=== PATIENT | male | born 1975 | race African-American/Black ===

== ENCOUNTER 2018-02-21 12:22 | Emergency (ER) | payer OTHER ==
[~2018-02-21] VITALS: Ht 172.7 cm; Wt 67.8 kg
[~2018-02-21 12:22] MED LIST: DIPH25CA58 PO; LISI10TA2 PO; PRED-220 PO
[2018-02-21 13:06] LABS: BASO % 1 % (0-3); EOS # 0.2 x10^3/uL (0.0-0.7); EOS % 3 % (0-3); HEMATOCRIT 41.2 % (39.0-53.0); HEMOGLOBIN 13.5 g/dL (13.0-17.5); LYMPH # 1.9 x10^3/uL (1.0-4.8); LYMPH % 24 % (24-48); MEAN CORPUSCULAR HEMOGLOBIN 27 pg (25-35); MEAN CORPUSCULAR HGB CONC 33 g/dL (31-37); MEAN CORPUSCULAR VOLUME 83 fL (79-100); MONO # 0.7 x10^3/uL (0.0-1.1); MONO % 9 % (0-9); NEUT % 63 % (31-73); PLATELET COUNT 292 x10^3/uL (140-400); RED BLOOD COUNT 4.98 x10^6/uL (4.30-5.70); RED CELL DISTRIBUTION WIDTH 14.3 % (11.5-14.5); WHITE BLOOD COUNT 7.9 x10^3/uL (4.0-11.0)
--- NOTE | 2018-02-21 13:10 | PHYS DOC ---
Past History Past Medical History: Hypertension Past Surgical History: Other Alcohol Use: Occasionally Drug Use: Marijuana Adult General Chief Complaint Chief Complaint: HYPERTENSION HPI HPI 42-year-old male presents with hypertension. Patient woke up this morning and had a headache which he describes as a burning feeling. He decided to go back to sleep. He woke up couple hours later and continued to have headache and light upper chest pain just around the clavicle. He was concerned might be his blood pressure. He checked his blood pressure with a home machine and was found in the 180s over 120. He decided he comes emergency room. Patient denies any shortness of breath, dizziness, change in vision. His headache has resolved at this time. He has no further chest discomfort. He was prescribed amlodipine 5 mg but has been out for several weeks. He knows he should've gotten a refill but he has put off going back for his follow-up appointment. He believes that the amlodipine was working well when he was taking it. He denies any other symptoms of illness or pain. Review of Systems Review of Systems Constitutional: Denies fever or chills [] Eyes: Denies change in visual acuity, redness, or eye pain [] HENT: Denies nasal congestion or sore throat [] Respiratory: Denies cough or shortness of breath [] Cardiovascular: No additional information not addressed in HPI [] GI: Denies abdominal pain, nausea, vomiting, bloody stools or diarrhea [] : Denies dysuria or hematuria [] Musculoskeletal: Denies back pain or joint pain [] Integument: Denies rash or skin lesions [] Neurologic: Denies headache, focal weakness or sensory changes [] Endocrine: Denies polyuria or polydipsia [] All other systems were reviewed and found to be within normal limits, except as documented in this note. Current Medications Current Medications Current Medications Medications (Trade) Dose Ordered Sig/Jhonatan Start Time Stop Time Status Last Admin Dose Admin Amlodipine Besylate (Norvasc) 5 mg 1X ONCE 02/21/18 13:20 02/21/18 13:21 02/21/18 13:00 5 MG Allergies Allergies Allergies Coded Allergies Type Severity Reaction Last Updated Verified No Known Drug Allergies 05/01/16 No Physical Exam Physical Exam Constitutional: Well developed, well nourished, no acute distress, non-toxic appearance. [] HENT: Normocephalic, atraumatic, bilateral external ears normal, oropharynx moist, no oral exudates, nose normal. [] Eyes: PERRLA, EOMI, conjunctiva normal, no discharge. [] Neck: Normal range of motion, no tenderness, supple, no stridor. [] Cardiovascular:Heart rate regular rhythm, no murmur [] Lungs & Thorax: Bilateral breath sounds clear to auscultation [] Abdomen: Bowel sounds normal, soft, no tenderness, no masses, no pulsatile masses. [] Skin: Warm, dry, no erythema, no rash. [] Back: No tenderness, no CVA tenderness. [] Extremities: No tenderness, no cyanosis, no clubbing, ROM intact, no edema. [] Neurologic: Alert and oriented X 3, normal motor function, normal sensory function, no focal deficits noted. [] Psychologic: Affect normal, judgement normal, mood normal. [] Current Patient Data Vital Signs Vital Signs Date Time Temp Pulse Resp B/P (MAP) Pulse Ox O2 Delivery O2 Flow Rate FiO2 02/21/18 13:00 65 174/110 EKG EKG [] Radiology/Procedures Radiology/Procedures [] Course & Med Decision Making Course & Med Decision Making Pertinent Labs and Imaging studies reviewed. (See chart for details) Patient's labs are unremarkable. I will give him 5 mg of amlodipine. The patient 's blood pressure has improved to 164/100. I will discharge him with a prescription for amlodipine for 30 days. Encouraged him to follow up with his PCP for further management. He is stable for discharge at this time. [] Dragon Disclaimer Dragon Disclaimer This electronic medical record was generated, in whole or in part, using a voice recognition dictation system. Departure Departure: Referrals: JUVE COURTNEY MD (PCP) ELI CALIXTO DO Feb 21, 2018 13:10
[2018-02-21] MEDS ORDERED: amLODIPine BESYLATE 5 MG TABLET PO ONE (13:20)
[2018-02-21 13:21] LABS: ALBUMIN 3.7 g/dL (3.4-5.0); ALBUMIN/GLOBULIN RATIO 1.1 (1.0-1.7); CALCIUM 8.4 mg/dL (8.5-10.1); GFR 99.2; POTASSIUM 3.7 mmol/L (3.5-5.1); TOTAL BILIRUBIN 0.4 mg/dL (0.2-1.0); TOTAL PROTEIN 7.1 g/dL (6.4-8.2)
[2018-02-21 14:13] VITALS: BP 135/89
[2018-02-21] MEDS ORDERED: AMLO5TAB7 PO (14:15)
== END 2018-02-21 14:15 | disposition home or self-care (01) ==
LOC: ER 12:22
DX: I10 Essential (primary) hypertension (principal); R07.89 Other chest pain
CPT/HCPCS: 36415; 80053; 85025; 99283

== ENCOUNTER 2020-08-30 13:44 | Emergency (ER) | payer OTHER ==
[~2020-08-30] VITALS: Ht 172.7 cm; Wt 71.3 kg
[~2020-08-30 13:44] MED LIST changes: +AMLO-186 PO; +LISI10TA16 PO; -LISI10TA2 PO
[2020-08-30 14:53] VITALS: BP 151/107
[2020-08-30] MEDS ORDERED: IV NORMAL SALINE 1,000ML 1,000 ML IV ONE (15:30)
--- NOTE | 2020-08-30 15:31 | PHYS DOC ---
Past History Past Medical History: Asthma, Hypertension Past Surgical History: Other Alcohol Use: Occasionally Drug Use: Marijuana Adult General Chief Complaint Chief Complaint: NAUSEA/VOMITING/DIARRHEA HPI HPI Patient is a 44-year-old male presenting for nausea and vomit. Reports being relatively healthy, does admit to going out with friends 48 hours prior and took x3 tequila shots and blacked out which is unusual for him. He is concerned that he might have been targeted by a libertarian drug. Reports feeling dehydrated, nauseous and has suffered numerous episodes of nonbloody nonbilious emesis ever since. No fever, chest pain, shortness of breath, abdominal pain, dysuria Review of Systems Review of Systems Fourteen body systems of review of systems have been reviewed. See HPI for pertinent positives and negative responses, other thomas all other systems are negative, non-pertinent or non-contributory Allergies Allergies Allergies Coded Allergies Type Severity Reaction Last Updated Verified No Known Drug Allergies 05/01/16 No Physical Exam Physical Exam Constitutional: Well developed, well nourished, no acute distress, non-toxic appearance. HENT: Normocephalic, atraumatic, bilateral external ears normal, oropharynx moist, no oral exudates, nose normal. Eyes: PERRLA, EOMI, conjunctiva normal, no discharge. Neck: Normal range of motion, no tenderness, supple, no stridor. Cardiovascular: Heart rate regular, sinus rhythm, no murmurs rubs or gallops Lungs & Thorax: Bilateral breath sounds clear to auscultation Abdomen: Bowel sounds normal, soft, no tenderness, no masses, no pulsatile masses. Nonsurgical abdomen, no peritoneal signs Skin: Warm, dry, no erythema, no rash. Back: No tenderness, no CVA tenderness. Extremities: No tenderness, no cyanosis, no clubbing, ROM intact, no edema. Neurologic: Alert and oriented X 3, grossly normal motor & sensory function, no focal deficits noted. Psychologic: Affect normal, judgement normal, mood normal. Current Patient Data Vital Signs Vital Signs Date Time Temp Pulse Resp B/P (MAP) Pulse Ox O2 Delivery O2 Flow Rate FiO2 08/30/20 14:53 98.8 88 18 151/107 (122) 100 Lab Results Laboratory Tests Test 08/30/20 15:37 White Blood Count 15.3 x10^3/uL Red Blood Count 5.65 x10^6/uL Hemoglobin 15.5 g/dL Hematocrit 46.5 % Mean Corpuscular Volume 82 fL Mean Corpuscular Hemoglobin 27 pg Mean Corpuscular Hemoglobin Concent 33 g/dL Red Cell Distribution Width 14.1 % Platelet Count 311 x10^3/uL Neutrophils (%) (Auto) 70 % Lymphocytes (%) (Auto) 17 % Monocytes (%) (Auto) 12 % Eosinophils (%) (Auto) 0 % Basophils (%) (Auto) 0 % Neutrophils # (Auto) 10.7 x10^3uL Lymphocytes # (Auto) 2.6 x10^3/uL Monocytes # (Auto) 1.8 x10^3/uL Eosinophils # (Auto) 0.0 x10^3/uL Basophils # (Auto) 0.0 x10^3/uL Segmented Neutrophils % 62 % Lymphocytes % 28 % Monocytes % 10 % Platelet Estimate Adequate Urine Collection Type Unknown Urine Color Yellow Urine Clarity Cloudy Urine pH 6.0 Urine Specific Stuart >=1.030 Urine Protein 100 mg/dl Urine Glucose (UA) Neg mg/dL Urine Ketones (Stick) Neg mg/dL Urine Blood Neg Urine Nitrite Neg Urine Bilirubin Small Urine Urobilinogen Dipstick 0.2 mg/dL Urine Leukocyte Esterase Neg Urine RBC 0 /HPF Urine WBC 0 /HPF Urine Squamous Epithelial Cells Occ /LPF Urine Bacteria 0 /HPF Urine Hyaline Casts Few /HPF Urine Mucus Mod /LPF Sodium Level 138 mmol/L Potassium Level 3.0 mmol/L Chloride Level 98 mmol/L Carbon Dioxide Level 30 mmol/L Anion Gap 10 Blood Urea Nitrogen 21 mg/dL Creatinine 1.3 mg/dL Estimated GFR (Cockcroft-Gault) 72.6 BUN/Creatinine Ratio 16 Glucose Level 100 mg/dL Calcium Level 9.1 mg/dL Magnesium Level 2.5 mg/dL Total Bilirubin 1.5 mg/dL Aspartate Amino Transf (AST/SGOT) 35 U/L Alanine Aminotransferase (ALT/SGPT) 47 U/L Alkaline Phosphatase 103 U/L Total Protein 8.2 g/dL Albumin 4.4 g/dL Albumin/Globulin Ratio 1.2 Current Medications Medications (Trade) Dose Ordered Sig/Jhonatan Route PRN Reason Start Time Stop Time Status Last Admin Dose Admin Sodium Chloride 1,000 ml @ 1,000 mls/hr 1X ONCE IV 08/30/20 15:30 08/30/20 16:29 DC 08/30/20 16:22 Potassium Chloride (Klor-Con) 40 meq 1X ONCE PO 08/30/20 16:45 08/30/20 16:46 DC Potassium Chloride (Klor-Con) 40 meq 1X ONCE PO 08/30/20 17:15 08/30/20 17:16 DC Radiology/Procedures Radiology/Procedures [] Heart Score C/O Chest Pain: No HEART Score for Chest Pain: HEART Score for Chest Pain Response (Comments) Value History Slighlty/Non-Suspicious 0 ECG Normal 0 Age < 45 0 Risk Factors No Risk Factors 0 Total 0 Risk Factors: Risk Factors: DM, Current or recent (<one month) smoker, HTN, HLP, family history of CAD, obesity. Risk Scores: Risk Factors: DM, Current or recent (<one month) smoker, HTN, HLP, family history of CAD, obesity. Course & Med Decision Making Course & Med Decision Making Discussed with the patient all findings and diagnostic testing. I discussed most likely diagnosis of likely self-limiting GI illness such as gastroenteritis versus sequelae of cardiac drug versus other. Patient symptoms completely resolved with ER intervention including IV fluid rehydration and antiemetics. Supplemental potassium given and tolerated well in ER. Patient tolerating p.o. intake and requesting discharge home and of ER visit with request for p.o. Zofran. I feel this is appropriate, he has good access to care and so, I stressed need for close outpatient follow-up to review today's ER visit. Strict return precautions were also discussed at length with good understanding by patient. Patient voiced understanding and agreement with the plan. Patient knows to come back for repeat evaluation if concerning signs or symptoms present prior to outpatient follow-up. Hemodynamically stable, ambulatory and well- appearing at time of disposition. Dragon Disclaimer Dragon Disclaimer This electronic medical record was generated, in whole or in part, using a voice recognition dictation system. Departure Departure: Impression: Primary Impression: Nausea & vomiting Additional Impression: Hypokalemia Disposition: HOME / SELF CARE / HOMELESS Condition: IMPROVED Referrals: TARA BRADLEY MD (PCP) Patient Instructions: Nausea and Vomiting Additional Instructions: You were seen for nausea and vomiting. You most likely have a viral illness but as disclosed, there might have been foul play and possible ingestion from your tequila shots on Thursday evening. Regardless, your condition should resolve in the next few days to a week. You should return to the ED if you develop abdominal pain, fever > 100.3, black/bloody stools, black/bloody vomiting, cannot keep water down, or any other new or concerning symptoms. Scripts Ondansetron (ONDANSETRON ODT) 4 Mg Tab.rapdis 1 TAB PO PRN Q6-8HRS for NAUSEA, #16 TAB Prov: KING VAZQUEZ DO 08/30/20 Problem Qualifiers KING VAZQUEZ DO Aug 30, 2020 15:31
[2020-08-30 16:03] LABS: BASO % 0 % (0-3); CALCIUM 9.1 mg/dL (8.5-10.1); CREATININE 1.3 mg/dL (0.7-1.3); EOS % 0 % (0-3); GFR 72.6; HEMATOCRIT 46.5 % (39.0-53.0); HEMOGLOBIN 15.5 g/dL (13.0-17.5); LYMPH # 2.6 x10^3/uL (1.0-4.8); LYMPH % 17 % (24-48); MEAN CORPUSCULAR HEMOGLOBIN 27 pg (25-35); MEAN CORPUSCULAR HGB CONC 33 g/dL (31-37); MEAN CORPUSCULAR VOLUME 82 fL (79-100); MONO # 1.8 x10^3/uL (0.0-1.1); MONO % 12 % (0-9); NEUT # 10.7 x10^3uL (1.8-7.7); NEUT % 70 % (31-73); PLATELET COUNT 311 x10^3/uL (140-400); RED BLOOD COUNT 5.65 x10^6/uL (4.30-5.70); RED CELL DISTRIBUTION WIDTH 14.1 % (11.5-14.5); WHITE BLOOD COUNT 15.3 x10^3/uL (4.0-11.0)
[2020-08-30 16:08] LABS: ALBUMIN 4.4 g/dL (3.4-5.0); ALBUMIN/GLOBULIN RATIO 1.2 (1.0-1.7); TOTAL BILIRUBIN 1.5 mg/dL (0.2-1.0); TOTAL PROTEIN 8.2 g/dL (6.4-8.2)
[2020-08-30 16:26] LABS: BACTERIA,URINE 0 /HPF (0-FEW); BILIRUBIN,URINE SMALL (NEG); CLARITY,URINE CLOUDY; COLOR,URINE YELLOW; GLUCOSE,URINE NEG (NEG); HYALINE CASTS, URINE FEW /HPF; NITRITE,URINE NEG (NEG); RBC,URINE 0 /HPF (0-2); SQUAMOUS EPITHELIAL CELL,UR OCC /LPF; UROBILINOGEN,URINE 0.2 mg/dL (0.2 mg/dL); WBC,URINE 0 /HPF (0-4)
[2020-08-30 16:31] LABS: % LYMPHS 28 % (24-48); % MONOS 10 % (0-10); % SEGS 62 % (35-66); PLT ESTIMATE ADEQUATE (ADEQUATE)
[2020-08-30] MEDS ORDERED: POTASSIUM CHLORIDE 20 MEQ TABLET.ER. PO ONE ×2 (16:45→17:15)
[2020-08-30] MEDS ORDERED: ONDA4TAB12 PO (17:23)
== END 2020-08-30 17:41 | disposition home or self-care (01) ==
LOC: ER 13:44
DX: E87.6 Hypokalemia (principal); J45.909 Unspecified asthma, uncomplicated; I10 Essential (primary) hypertension; F12.10 Cannabis abuse, uncomplicated
CPT/HCPCS: 36415; 80053; 81001; 83735; 85007; 85025; 96360; 99283; J7030

== ENCOUNTER → 2020-12-18 | Outpatient (CLI) | payer OTHER ==
[~2020-12-18] MED LIST changes: +ONDA4TAB12 PO
--- NOTE | 2020-12-18 10:37 | RAD ---
INDICATION: Reason: RIGHT SIDE HERNIA SURGERY 4 YRS AGO, RIGHT SIDE PAIN / Spl. Instructions: / Hist ory: COMPARISON: None. TECHNIQUE: Axial CT images were obtained through the abdomen and pelvis without intravenous contrast. One or more of the following individualized dose reduction techniques were utilized for this examinat ion: 1. Automated exposure control; 2. Adjustment of the mA and/or kV according to patient size; 3 . Use of iterative reconstruction technique. FINDINGS: Vascular: No abdominal aortic aneurysm. Hepatobiliary: There is a couple of subcentimeter low-density liver lesions which are too small to ch aracterize but a common finding. Pancreas: No peripancreatic edema. Spleen: Spleen unremarkable. Renal: Cystic lesion of the left kidney. No hydronephrosis. Bladder: No definite inflammatory changes to the bladder. Gastrointestinal: No periappendiceal inflammatory changes. Small fat-containing umbilical hernia. There are few mildly prominent loops of fluid-filled small bow el scattered throughout the abdomen and pelvis without a high-grade transition point. Degenerative ch anges of the hips. Mild degenerative changes of spine. There is presumed hernia mesh seen within the pelvis anteriorly with a hernia mesh seen bowing into t he right inguinal greater than left inguinal canal region where there is a fat-containing right great er than left inguinal hernia. A portion of the right side of the urinary bladder extends into the rig ht inguinal canal region deep to the hernia mesh. IMPRESSION: * Hernia mesh is seen within the anterior aspect of the pelvis overlying the inguinal canal region with bowing of the hernia mesh into the right greater than left inguinal canal with a portion of the right side of the urinary bladder extending into the proximal aspect of the inguinal canal deep to th e hernia mesh. Overlying right greater than left fat-containing inguinal hernias are seen superficial to the mesh. * Fluid-filled loops of small bowel are seen within the abdomen and pelvis without a high-grade orellana sition point to suggest obstruction. Electronically signed by: Ion Topete MD (12/18/2020 10:34 AM) [id number]
== END ==
LOC: CT 09:42
PROVIDERS: ATTEND Family Medicine
DX: K42.9 Umbilical hernia without obstruction or gangrene (principal); K40.90 Unilateral inguinal hernia, without obstruction or gangrene, not specified as recurrent; K45.8 Other specified abdominal hernia without obstruction or gangrene
CPT/HCPCS: 74176

== ENCOUNTER 2021-03-24 20:32 | Emergency (ER) | payer OTHER ==
[~2021-03-24] VITALS: Ht 172.7 cm; Wt 75.9 kg
[2021-03-24] MEDS ORDERED: IBUPROFEN 600 MG TABLET. PO ONE ×2 (21:14→21:30)
--- NOTE | 2021-03-24 21:15 | PHYS DOC ---
Past History Past Medical History: Asthma, Hypertension Past Surgical History: Other Additional Past Surgical Histo: hernia Alcohol Use: Occasionally Drug Use: Marijuana General Adult EDM: Chief Complaint: FEVER HPI: HPI: Patient is a 45-year-old male who presents with fever. Patient denies cough, shortness of breath, congestion. Denies nausea/vomiting/diarrhea. No other complaints at this time. Patient did have a surgery 3 weeks ago for hernia repair. Patient was concerned fever was related to recent surgery. All wounds have healed. No swelling, redness, drainage from the wound area. Patient did follow-up with his surgeon on Thursday who also said that wounds were healing appropriately. Review of Systems: Review of Systems: ROS At least 10 ROS systems have been reviewed and are negative except as documented in the HPI. General: Negative except as outlined in HPI above. Skin: Negative except as outlined in HPI above. HEENT: Negative except as outlined in HPI above. Neck: Negative except as outlined in HPI above. Respiratory: Negative except as outlined in HPI above.. Cardiovascular: Negative except as outlined in HPI above. Abdomen: Negative except as outlined in HPI above. : Negative except as outlined in HPI above. Back/MSK: Negative except as outlined in HPI above. Neuro: Negative except as outlined in HPI above. Psych: Negative except as outlined in HPI above. Allergies: Allergies: Allergies Coded Allergies Type Severity Reaction Last Updated Verified No Known Drug Allergies 05/01/16 No Physical Exam: PE: Constitutional: Well developed, well nourished, no acute distress, non-toxic appearance. [] HENT: Normocephalic, atraumatic, bilateral external ears normal, oropharynx moist, no oral exudates, nose normal. [] Eyes: PERRLA, EOMI, conjunctiva normal, no discharge. [] Neck: Normal range of motion, no tenderness, supple, no stridor. [] Cardiovascular:Heart rate regular rhythm, no murmur [] Lungs & Thorax: Bilateral breath sounds clear to auscultation [] Abdomen: Bowel sounds normal, soft, no tenderness, no masses, no pulsatile mas ses. [] Skin: Warm, dry, no erythema, no rash. [] Back: No tenderness, no CVA tenderness. [] Extremities: No tenderness, no cyanosis, no clubbing, ROM intact, no edema. [] Neurologic: Alert and oriented X 3, normal motor function, normal sensory function, no focal deficits noted. [] Psychologic: Affect normal, judgement normal, mood normal. [] Current Patient Data: Vital Signs: Vital Signs Date Time Temp Pulse Resp B/P (MAP) Pulse Ox O2 Delivery O2 Flow Rate FiO2 03/24/21 20:48 100.8 84 16 152/110 (124) 97 Room Air EKG: EKG: [] Radiology/Procedures: Radiology/Procedures: [] Heart Score: C/O Chest Pain: No Risk Factors: Risk Factors: DM, Current or recent (<one month) smoker, HTN, HLP, family history of CAD, obesity. Risk Scores: Score 0 - 3: 2.5% MACE over next 6 weeks - Discharge Home Score 4 - 6: 20.3% MACE over next 6 weeks - Admit for Clinical Observation Score 7 - 10: 72.7% MACE over next 6 weeks - Early Invasive Strategies Course & Med Decision Making: Course & Med Decision Making Pertinent Labs and Imaging studies reviewed. (See chart for details) [] 45-year-old male presents with fever. Denies all other symptoms. Patient states he started running a fever last night. Patient had a recent hernia surgery and that is why he wanted to be seen. Wounds are healing appropriately. No redness, warmth, swelling, drainage, pain to the surgery site. Patient most likely has viral syndrome. Advised patient to call Dr. Moore and make a follow-up appointment if he is still concerned. Alternate between ibuprofen and Tylenol at home, increase fluids. Patient's temperature on discharge was 100.8. Patient denies taking anything today for fever or chills. Patient given Motrin prior to discharge. Patient denying wanting a Covid or influenza test. Patient is hemodynamically stable and able to ambulate on his own upon disposition. Discussed return precautions. Patient verbalized understanding of discharge instructions. Dragon Disclaimer: Dragon Disclaimer: This electronic medical record was generated, in whole or in part, using a voice recognition dictation system. Departure Departure: Impression: Primary Impression: Fever Qualified Codes: R50.9 - Fever, unspecified Additional Impression: Viral syndrome Disposition: HOME / SELF CARE / HOMELESS Condition: STABLE Referrals: TARA BRADLEY MD (PCP) Patient Instructions: Viral Syndrome Additional Instructions: You were seen in the emergency room for a fever. Continue alternating between Motrin and Tylenol at home. Make sure you increase your fluids. Follow-up with Dr. Moore if symptoms do not improve. You were given Motrin while in the ER for fever control. Return to the emergency room if you have uncontrolled f padma, vomiting, pain or any worsening symptoms or concerns. EMERGENCY DEPARTMENT GENERAL DISCHARGE INSTRUCTIONS Thank you for coming to [facility] (ED) today and trusting us with you care. We trust that you had a positivie experience in our Emergency Department. If you wish to speak to the department management, you may call the director at [phone]. YOUR FOLLOW UP INSTRUCTIONS ARE FOLLOWS: 1. Do you have a private Doctor? If you do not have a private doctor, please a sk for a resource list of physicians or clinics that may be able to assist you with follow up care. 2. The Emergency Physician has interpreted your x-rays. The X-Ray specialist will also review them. If there is a change in the findings, you will be notified in 48 hours when at all possible. 3. A lab test or culture has been done, your results will be reviewed and you will be notified if you need a change in treatment. ADDITIONAL INSTRUCTIONS AND INFORMATION: 1. Your care today has been supervised by a physician who is specially trained in emergency care. Many problems require more than one evaluation for a complete diagnosis and treatment. We recommend that you schedule your follow up appointment as recommended to ensure complete treatment of you illness or injury. If you are unable to obtain follow up care and continue to have a problem, or if your condition worsens, we recommend that you return to the ED. 2. We are not able to safely determine your condition over the phone nor are we able to give sound medical advice over the phone. For these safety reasons, if you call for medical advice we will ask you to come to the ED for further evaluation. 3. If you have any questions regarding these discharge instructions please call the ED at [phone]. SAFETY INFORMATION: In the interest of safety, wellness, and injury prevention; we encourage you to wear your sealbelt, if you smoke; quite smoking, and we encourage family to use a protective helmet for bicycling and other sporting events that present an increased risk for head injury. IF YOUR SYMPTOMS WORSEN OR NEW SYMPTOMS DEVELOP, OR YOU HAVE CONCERNS ABOUT YOUR CONDITION; OR IF YOUR CONDITION WORSENS WHILE YOU ARE WAITING FOR YOUR FOLLOW UP APPOINTMENT; EITHER CONTACT YOUR PRIMARY CARE DOCTOR, THE PHYSICIAN WHOSE NAME AND NUMBER YOU WERE GIVEN, OR RETURN TO THE ED IMMEDIATELY. SYL MORALES APRN Mar 24, 2021 21:14
[2021-03-24 21:25] VITALS: BP 148/104
== END 2021-03-24 21:26 | disposition home or self-care (01) ==
LOC: ER 20:32
DX: B34.9 Viral infection, unspecified (principal); J45.909 Unspecified asthma, uncomplicated; I10 Essential (primary) hypertension
CPT/HCPCS: 99282

== ENCOUNTER 2021-07-15 22:25 | Emergency (ER) | payer OTHER ==
[~2021-07-15] VITALS: Ht 172.7 cm; Wt 75.9 kg
--- NOTE | 2021-07-15 22:58 | PHYS DOC ---
Past History Past Medical History: Asthma, Hypertension Past Surgical History: Other Additional Past Surgical Histo: hernia Alcohol Use: None Drug Use: Marijuana Adult General Chief Complaint Chief Complaint: HYPERTENSION HPI HPI Patient is a 45-year-old male with a past medical history of hypertension on amlodipine and losartan who presents with a chief complaint of hypertension. States that he tries to check his blood pressure almost daily and checked at the scene and and it was 170 on the top number and 100 on the bottom number. States it has been slowly creeping up over the last couple of months but has not changed his blood pressure medications and has not talked to his primary care about this. Denies any recent travels, traumas, illnesses, fevers, chest pain, shortness of breath, dyspnea on exertion, orthopnea, PND or edema. Denies any diaphoresis. Denies any abdominal pain, nausea, vomiting, diarrhea. Denies any numbness/weakness/tingling. Denies any trouble sitting, standing or walking. States he feels well but was just worried that his blood pressure was going up. States he has been taking his medications in the morning as usual. Review of Systems Review of Systems Review of systems otherwise unremarkable except noted in HPI Allergies Allergies Allergies Coded Allergies Type Severity Reaction Last Updated Verified No Known Drug Allergies 05/01/16 No Physical Exam Physical Exam Constitutional: Well developed, well nourished, no acute distress, non-toxic appearance. [] HENT: Normocephalic, atraumatic, bilateral external ears normal, oropharynx moist, no oral exudates, nose normal. [] Eyes: conjunctiva normal, no discharge. [] Neck: Normal range of motion, no tenderness, supple, no stridor. [] Cardiovascular:Heart rate regular rhythm, no murmur [] Lungs & Thorax: Bilateral breath sounds clear to auscultation [] Abdomen: soft, no tenderness, no masses, no pulsatile masses. [] Skin: Warm, dry, no erythema, no rash. [] Back: No tenderness, no CVA tenderness. [] Extremities: Neurovascular exam intact, no tenderness, no cyanosis, no clubbing, ROM intact, no edema. [] Neurologic: Alert and oriented X 3, normal motor function, normal sensory function, able to sit, stand and walk without issue, no focal deficits noted. [] Psychologic: Affect normal, judgement normal, mood normal. [] Current Patient Data Vital Signs Vital Signs Date Time Temp Pulse Resp B/P (MAP) Pulse Ox O2 Delivery O2 Flow Rate FiO2 07/15/21 22:40 98.2 80 16 161/114 (130) 98 EKG EKG [] Radiology/Procedures Radiology/Procedures [] Heart Score C/O Chest Pain: No Risk Factors: Risk Factors: DM, Current or recent (<one month) smoker, HTN, HLP, family history of CAD, obesity. Risk Scores: Risk Factors: DM, Current or recent (<one month) smoker, HTN, HLP, family history of CAD, obesity. Course & Med Decision Making Course & Med Decision Making Patient is 45-year-old male who presents with hypertension Vital signs notable for hypertension. Physical exam noted above. Patient completely asymptomatic. Advised to take an extra 5 mg of his amlodipine at nighttime starting tonight and until he sees his primary care physician. Advised to get a brand-new blood pressure cuff for home and advised on how to take an appropriate blood pressure daily for a log Gave strict return precautions to the ED. Patient grateful, verbalized understanding and agreed with plan of discharge. [] Dragon Disclaimer Dragon Disclaimer This electronic medical record was generated, in whole or in part, using a voice recognition dictation system. Departure Departure: Impression: Primary Impression: Hypertension Disposition: 01 HOME / SELF CARE / HOMELESS Condition: STABLE Referrals: TARA BRADLEY MD (PCP) Patient Instructions: Hypertension Additional Instructions: Thank you for coming into the emergency department tonight and allowing us to take care of you. Please read all of the attached carefully to go back over some of the things we discussed. Please continue take your blood pressure medicine as prescribed in the morning and take an extra 5 mg of your amlodipine at nighttime. Please stay well-hydrated. Please call your primary care physician in the morning to update on your ED visit and set up a follow-up as soon as you can to discuss your ED visit and need for medication management for your high blood pressure. Also discussed need for outpatient kidney ultrasound to rule out that as a cause of your high blood pressure. Please come back to the emergency department immediately with new or concerning symptoms as we discussed. GERDA RODNEY MD Jul 15, 2021 22:58
[2021-07-15 23:09] VITALS: BP 137/94
== END 2021-07-15 23:10 | disposition home or self-care (01) ==
LOC: ER 22:25
DX: I10 Essential (primary) hypertension (principal); J45.909 Unspecified asthma, uncomplicated
CPT/HCPCS: 99283-25